=== PATIENT | female | born 1995 | race Asian ===

== ENCOUNTER 2022-02-11 23:46 | Observation (INO) ==
[2022-02-12] MEDS ORDERED: ACETAMINOPHEN 1,000 MG/100 ML VIAL IV STA (01:31)
[2022-02-12] MEDS ORDERED: CIPROFLOXACIN / D5W 400 MG/200 ML BAG IV STA (01:31)
[2022-02-12] MEDS ORDERED: metroNIDAZOLE 500 MG/100 ML BAG IV STA (01:31)
[2022-02-12 02:00] LABS: Basophils # (auto) 0.01 K/uL (0-0.2); Basophils % (auto) 0.1 %; Eosinophils # (auto) 0.12 K/uL (0-0.50); Eosinophils % (auto) 1.1 %; Hematocrit (blood only) 39.1 % (34.1-44.9); Hemoglobin 12.9 g/dl (12.0-16.0); Immature Granulocytes # (auto) 0.02 K/uL (0.00-0.02); Immature Granulocytes % (auto) 0.2 %; Lymphocytes # (auto) 1.98 K/uL (1.2-3.4); Lymphocytes % (auto) 17.4 %; Mean Platelet Volume 9.1 fL (9.4-12.3); Monocytes # (auto) 0.66 K/uL (0.24-0.82); Monocytes % (auto) 5.8 %; Neutrophils # (auto) 8.61 K/uL (1.4-6.5); Neutrophils % (auto) 75.4 %; Platelet Count 276 K/uL (130-400)
[2022-02-12 02:25] LABS: Albumin Globulin Ratio 1.2 (0.9-2); Albumin Level 4.4 gm/dl (3.4-5.0); BUN Creatinine Ratio 13.9 (10-20); Bilirubin,Total 0.7 mg/dl (0.2-1.0); Calcium 9.2 mg/dl (8.5-10.1); Creatinine Clr Calc Pharmacy 105.9 ml/min; Est GFR (African American) 134.9 ml/min; Est GFR (Non-African American) 116.4 ml/min; Globulin 3.6 gm/dl (2.5-4.0)
[2022-02-12] MEDS ORDERED: OPTIRAY 350 100ml IV ONE (03:00)
[2022-02-12 05:31] LABS: Appearance Urine Clear (Clear); Bacteria Urine Automated 1+ (Negative); Bilirubin Urine Negative (Negative); Blood Urine Negative (Negative); Color Urine Yellow; Epithelial Cell Urine Auto >30 /lpf (0-5); Glucose Urine UA Negative (Negative); Ketones Urine 2+ (Negative); Leukocyte Esterase Urine Negative (Negative); Nitrite Urine Negative (Negative); Protein Urine Trace (Negative); RBC Urine Automated 0-4 /hpf (0-4); Specific Gravity Urine > 1.045 (1.000-1.030); Urobilinogen Urine Negative (Negative); pH Urine 6.5 (4.5-7.5)
--- NOTE | 2022-02-12 05:59 | Emergency Department Note ---
History of Present Illness General Chief complaint: Pilonidal Cyst Stated complaint: INFECTED CYST IN RIGHT BUTT CHEEK Time Seen by Provider: 02/12/22 01:22 History of Present Illness Maximum Pain Intensity: 4 This 26-year-old presents to the ER complaining of buttock cellulitis Location: Buttock Quality: Painful Severity: Moderate Duration: Past few days Timing: Started few days ago Context: Patient was concerned and came in Modifying factors: better with rest; worse with palpation Patient denies chest pain, dyspnea, abdominal pain, fever, chills, flulike illness. No history of pilonidal abscesses. No diabetes Home Medications Medication Instructions Recorded Confirmed Type fluconazole 150 mg tablet 150 mg PO Q3D 2 doses #2 tabs 10/01/21 10/01/21 Rx venlafaxine [Effexor XR] PO 10/01/21 10/01/21 History Allergies Allergy/AdvReac Type Severity Reaction Status Date / Time Penicillins Allergy Verified 10/01/21 13:45 Past Med/Surg History Medical History No acute medical problems Surgical History No pertinent past surgical history Family History Denies family history of Ovarian cancer Prostate cancer Myocardial infarction Breast cancer Colorectal cancer Social History Smoking Status: Current every day smoker Tobacco Type: E-cigarettes / Vaping Second Hand Exposure: No; Hx Alcohol Use: Yes Hx Substance Use: No Preferred Language: Ukrainian marital status: Single Current Living Situation: Alone current occupational status: employed How many Children do You have: 0 Feels Safe at Home: Yes caffeine: Yes Dental Care, Regularly: Yes Physical Activity Frequency: 3-4 Times per Week Seatbelt Use: always Review of Systems A total of 10 systems reviewed and were otherwise negative Physical Exam Vital Signs Vital Signs - 24 hr 02/11/22 23:50 02/12/22 02:07 02/12/22 02:07 Temperature 36.6 C Temperature Source Temporal Artery Scan Pulse Rate 113 H Pulse Rate [Finger] 84 Pulse Rhythm [Finger] Pulse Strength [Finger] Respiratory Rate 20 18 Respiratory Effort / Characteristics Non-Labored Non-Labored Spontaneous Respiratory Depth Normal Normal Respiratory Pattern Regular Blood Pressure 114/63 Blood Pressure [Left Arm] 102/57 L Blood Pressure Mean 80 Blood Pressure Mean [Left Arm] 72 Blood Pressure Position [Left Arm] Semi-fowlers Pulse Oximetry 98 99 98 Oxygen Delivery Method Room Air Room Air Sepsis Recent Fever Within 48 Hours No Sepsis New/Unexplained Change in Mental Status N/A Sepsis Action Taken by Nursing No Action Required 02/12/22 03:37 02/12/22 05:39 Temperature Temperature Source Pulse Rate Pulse Rate [Finger] 77 73 Pulse Rhythm [Finger] Regular Regular Pulse Strength [Finger] Normal Normal Respiratory Rate 16 17 Respiratory Effort / Characteristics Non-Labored Spontaneous Non-Labored Spontaneous Respiratory Depth Normal Normal Respiratory Pattern Regular Regular Blood Pressure Blood Pressure [Left Arm] 106/65 119/59 L Blood Pressure Mean Blood Pressure Mean [Left Arm] 78 79 Blood Pressure Position [Left Arm] Sitting Sitting Pulse Oximetry 98 97 Oxygen Delivery Method Room Air Room Air Sepsis Recent Fever Within 48 Hours Sepsis New/Unexplained Change in Mental Status Sepsis Action Taken by Nursing VITALS: Vitals are noted on the nurse's note and reviewed by myself. Vital signs stable. GENERAL: Pleasant patient, in no acute distress, nondiaphoretic, well-developed well-nourished. SKIN: Right buttock with cellulitis with small pustule, the rest of the skin was without rashes, erythema, edema, or bruising. There is no tenting of the skin. Capillary reflex less than 2 seconds. HEAD: Normocephalic atraumatic. EARS: External auditory canals clear, EYES: Pupils equal round and reactive to light and accommodation. Conjunctivae without injection, sclerae without icterus. Extraocular movements intact. NOSE: Patent, turbinates without inflammation or discharge. MOUTH: Mucous membranes moist. Pharynx without erythema or exudate. Uvula midline. Airway patent. Tongue does not deviate. NECK: Supple without nuchal rigidity. No lymphadenopathy. No thyromegaly. Cervical spine is nontender. No JVD. HEART: Regular rate and rhythm LUNGS: Clear to auscultation bilaterally without wheezes, rales or rhonchi. No retractions or accessory muscle use. ABDOMEN: Positive bowel sounds x 4. Normal tympanic percussion. Soft, nontender, without masses or organomegaly. [place] sign negative. No guarding or rebound tenderness. No CVA tenderness MUSCULOSKELETAL: No muscle atrophy, erythema, or edema noted. NEURO: Patient was alert and oriented to person place and time. Normal sensation to light and sharp touch. No focal neurological deficits. Course Administered Medications Discontinued Medications Acetaminophen (Ofirmev) 1,000 mg in 100 mls @ 400 mls/hr IV NOW STA Stop: 02/12/22 01:45 Last Infusion: 02/12/22 01:59 Dose: 0 mls/hr Documented By: Admin: 02/12/22 01:44 Dose: 400 mls/hr Documented By: JAME Ciprofloxacin (Cipro / D5w) 400 mg in 200 mls @ 100 mls/hr IV NOW STA; Protocol Stop: 02/12/22 03:30 Last Infusion: 02/12/22 04:31 Dose: 0 mls/hr Documented By: Admin: 02/12/22 01:44 Dose: 100 mls/hr Documented By: JAME Metronidazole (Flagyl) 500 mg in 100 mls @ 100 mls/hr IV NOW STA Stop: 02/12/22 02:30 Last Infusion: 02/12/22 04:40 Dose: 0 mls/hr Documented By: Admin: 02/12/22 03:33 Dose: 100 mls/hr Documented By: KAPIL Ioversol (Optiray 350 100ml) 85 ml IV ONCE ONE Stop: 02/12/22 03:01 Last Admin: 02/12/22 02:56 Dose: 85 ml Documented By: MARTIN Medical Decision Making Medical Records Attestation: I reviewed the patient's medical records. Home Medications Current Medication List: was personally reviewed by me Laboratory Data Attestation: I reviewed the patient's lab results. Result diagrams: 02/12/22 01:45 02/12/22 01:45 Lab Results 02/12/22 02/12/22 02/12/22 Range/Units 01:45 01:45 04:50 WBC 11.40 H (4.8-10.8) K/ul RBC 4.60 (3.93-5.22) M/uL Hgb 12.9 (12.0-16.0) g/dl Hct 39.1 (34.1-44.9) % MCV 85.0 (80.0-100.0) fL MCH 28.0 (25.0-34.0) pg MCHC 33.0 (32.0-36.0) g/dL RDW Std Deviation 37.0 (36.4-46.3) fL RDW Coeff of [place] 12.0 (11.5-14.5) % Plt Count 276 (130-400) K/uL MPV 9.1 L (9.4-12.3) fL Immature Gran % (Auto) 0.2 % Neut % (Auto) 75.4 % Lymph % (Auto) 17.4 % [place] % (Auto) 5.8 % Eos % (Auto) 1.1 % Baso % (Auto) 0.1 % Neut # (Auto) 8.61 H (1.4-6.5) K/uL Lymph # (Auto) 1.98 (1.2-3.4) K/uL [place] # (Auto) 0.66 (0.24-0.82) K/uL Eos # (Auto) 0.12 (0-0.50) K/uL Baso # (Auto) 0.01 (0-0.2) K/uL Immature Gran # (Auto) 0.02 (0.00-0.02) K/uL Sodium 136 (136-145) mmol/L Potassium 3.0 L (3.5-5.1) mmol/L Chloride 99 (98-107) mmol/L Carbon Dioxide 28 (21-32) mmol/L Anion Gap 9 (3-11) BUN 10 (6-23) mg/dl Creatinine 0.72 (0.6-1.2) mg/dl Est Cr Clr Drug Dosing 105.9 ml/min Est GFR ( Amer) 134.9 ml/min Est GFR (Non-Af Amer) 116.4 ml/min BUN/Creatinine Ratio 13.9 (10-20) Glucose 76 (70-99(Fasting)) mg/dl Calcium 9.2 (8.5-10.1) mg/dl Total Bilirubin 0.7 (0.2-1.0) mg/dl AST 15 (13-39) U/L ALT 8 (7-52) U/L Alkaline Phosphatase 79 (34-104) U/L Total Protein 8.0 (6.0-8.3) gm/dl Albumin 4.4 (3.4-5.0) gm/dl Globulin 3.6 (2.5-4.0) gm/dl Albumin/Globulin Ratio 1.2 (0.9-2) Urine Color Yellow Urine Appearance Clear (Clear) Urine pH 6.5 (4.5-7.5) Ur Specific [place] > 1.045 H (1.000-1.030) Urine Protein Trace H (Negative) Urine Glucose (UA) Negative (Negative) Urine Ketones 2+ H (Negative) Urine Blood Negative (Negative) Urine Nitrite Negative (Negative) Urine Bilirubin Negative (Negative) Urine Urobilinogen Negative (Negative) Ur Leukocyte Esterase Negative (Negative) Imaging Data Attestation: I personally reviewed and interpreted this imaging study as follows: MDM Narrative Prior records reviewed and summarized as above. Triage Nursing notes reviewed. Additional history obtained from family. The patient's history was concerning for swelling and redness of the skin. Differential diagnosis: Etiologies such as cellulitis, abscess, MRSA infection, DVT, necrotizing fasciitis, dermatitis, drug eruption, as well as others were entertained.. Physical examination: As above ER treatment provided: Rocephin, Flagyl On reassessment the patient felt better. Diagnostics interpreted by me: The labs revealed mild leukocytosis Imaging studies: Preliminary Findings Only See Final Report For Complete Findings CT PELVIS: Right gluteal skin thickening, fat stranding, and phlegmonous reaction within the subcutaneous fat suspicious for cellulitis. No rim-enhancing fluid colle ction. Normal appendix. No free air. No free fluid. No pelvic or femoral neck fractures. Radiologist: Parker Olivier MD Consultation: A consultation was placed with the] hospitalist. The case was discussed and diagnostics were reviewed. The patient was evaluated in the ER for further treatment. This appears to be extensive buttock cellulitis. Medicine is consulted. Patient will be evaluated for possible admission. No drainable abscess per radiology. By the evaluation outlined above emergent etiologies such as abscess, necrotizing fasciitis, DVT, as well as others were deemed relatively unlikely. The pt informed about the findings as listed above. All questions were answered and pleased with the treatment. The chart was completed utilizing [employer] recognition software. Grammatical errors, random word insertions, pronoun errors, and incomplete sentences are an occassional consequence of this system due to software limitati ons, ambient noise, and hardware issues. Any formal questions or concerns about the content, text, or information contained within the body of this dictation should be directly addressed to the physician special education assistant for clarification. Impression & Plan Cellulitis of buttock, right Discharge Plan Visit Data Chief Complaint: Pilonidal Cyst Stated Complaint: INFECTED CYST IN RIGHT BUTT CHEEK ED Provider: [facility] Midlevel Provider: Sheila Gusman Discharge Problem: Cellulitis of buttock, right Patient Disposition: Admitted As Inpatient Condition: Good Forms Stand Alone Forms: My [facility] Prescriptions Prescriptions: No Action venlafaxine [Effexor XR] PO fluconazole 150 mg tablet 150 mg PO Q3D Qty: 2 0RF Referrals Referrals: PCP,NO [Primary Care Provider] -
--- NOTE | 2022-02-12 06:29 | History & Physical Report ---
Date of Service February 12, 2022 Assessment & Plan (1) Cellulitis of buttock, right: Plan: No sepsis for now Hypokalemia Mood disorder, stable Ongoing tobacco abuse OBS GMF buttock swelling CS, Doxycycline Follow official CT pelvis results May need General Surgery evaluation if abscess found. Replace potassium, check magnesium from lab blood Nicotine patch as needed DVT prophylaxis. Lovenox subcu Full code Text document was generated using [employer] voice recognition software. It may contain grammatical or spelling errors. Kindly contact undersigned for clarification of any documentation item in question. History of Present Illness Chief Complaint: Right buttock swelling Primary Care Provider: Lolita Baum PA-C from [place], [place] History obtained from patient and records. Medical history significant for mood disorder, ongoing tobacco abuse. Few days history of painful right buttock swelling without fever, chills. Some yellow drainage as per patient. No recollection of recent trauma. No prior episodes. Patient denies chest pain, shortness of breath. Ceftriaxone and Flagyl administered at the ER. 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 Allergies Allergy/AdvReac Type Severity Reaction Status Date / Time sulfamethoxazole Allergy Mild Hives Verified 02/12/22 10:49 [From Bactrim] trimethoprim [From Bactrim] Allergy Mild Hives Verified 02/12/22 10:49 Penicillins Allergy Hives Verified 02/12/22 10:49 Home Medications Medication Instructions Recorded Confirmed Type venlafaxine [Effexor XR] 75 mg PO DAILY 10/01/21 02/12/22 History Past Med/Surg History Medical History No acute medical problems Surgical History No pertinent past surgical history Family History Denies family history of Ovarian cancer Prostate cancer Myocardial infarction Breast cancer Colorectal cancer Social History Smoking Status: Current every day smoker Tobacco Type: E-cigarettes / Vaping Second Hand Exposure: No; Hx Alcohol Use: Yes Hx Substance Use: No Preferred Language: Czech marital status: Single Current Living Situation: Alone current occupational status: employed How many Children do You have: 0 Feels Safe at Home: Yes caffeine: Yes Dental Care, Regularly: Yes Physical Activity Frequency: 3-4 Times per Week Seatbelt Use: always Review of Systems Review of Systems: As per HPI, all other systems reviewed and negative Physical Exam Physical Exam: GENERAL: Comfortable, pleasant, no respiratory distress SKIN: Normal color, warm HEENT: [place] palpebral conjunctivae, no ptosis, dry buccal mucosa NECK : Supple, no tenderness CHEST : CTA, no tenderness HEART : RRR, no obvious murmurs ABDOMEN: no distention, nontender BUTTOCK : Tender erythematous swelling right buttock, no gross fluctuance EXTREMITIES : No LE swelling/tenderness, no other conspicuous deformities noted NEUROLOGIC : Coherent, no facial asymmetry, no other gross focality Results & Data Results & Data ([facility]) Vital Signs (Past 12 Hours) Vital Signs Temp Pulse Pulse Resp BP BP Pulse Ox 02/12/22 05:39 73 17 119/59 L 97 02/12/22 03:37 77 16 106/65 98 02/12/22 02:07 84 18 102/57 L 98 02/12/22 02:07 99 02/11/22 23:50 36.6 C 113 H 20 114/63 98 O2 Del Method 02/12/22 05:39 Room Air 02/12/22 03:37 Room Air 02/12/22 02:07 Room Air 02/12/22 02:07 02/11/22 23:50 Room Air Laboratory Results Laboratory Results WBC 11.40 K/ul (4.8-10.8) H 02/12/22 01:45 RBC 4.60 M/uL (3.93-5.22) 02/12/22 01:45 Hgb 12.9 g/dl (12.0-16.0) 02/12/22 01:45 Hct 39.1 % (34.1-44.9) 02/12/22 01:45 MCV 85.0 fL (80.0-100.0) 02/12/22 01:45 MCH 28.0 pg (25.0-34.0) 02/12/22 01:45 MCHC 33.0 g/dL (32.0-36.0) 02/12/22 01:45 RDW Std Deviation 37.0 fL (36.4-46.3) 02/12/22 01:45 RDW Coeff of [place] 12.0 % (11.5-14.5) 02/12/22 01:45 Plt Count 276 K/uL (130-400) 02/12/22 01:45 MPV 9.1 fL (9.4-12.3) L 02/12/22 01:45 Immature Gran % (Auto) 0.2 % 02/12/22 01:45 Neut % (Auto) 75.4 % 02/12/22 01:45 Lymph % (Auto) 17.4 % 02/12/22 01:45 [place] % (Auto) 5.8 % 02/12/22 01:45 Eos % (Auto) 1.1 % 02/12/22 01:45 Baso % (Auto) 0.1 % 02/12/22 01:45 Neut # (Auto) 8.61 K/uL (1.4-6.5) H 02/12/22 01:45 Lymph # (Auto) 1.98 K/uL (1.2-3.4) 02/12/22 01:45 [place] # (Auto) 0.66 K/uL (0.24-0.82) 02/12/22 01:45 Eos # (Auto) 0.12 K/uL (0-0.50) 02/12/22 01:45 Baso # (Auto) 0.01 K/uL (0-0.2) 02/12/22 01:45 Immature Gran # (Auto) 0.02 K/uL (0.00-0.02) 02/12/22 01:45 Sodium 136 mmol/L (136-145) 02/12/22 01:45 Potassium 3.0 mmol/L (3.5-5.1) L 02/12/22 01:45 Chloride 99 mmol/L (98-107) 02/12/22 01:45 Carbon Dioxide 28 mmol/L (21-32) 02/12/22 01:45 Anion Gap 9 (3-11) 02/12/22 01:45 BUN 10 mg/dl (6-23) 02/12/22 01:45 Creatinine 0.72 mg/dl (0.6-1.2) 02/12/22 01:45 Est Cr Clr Drug Dosing 105.9 ml/min 02/12/22 01:45 Est GFR ( Amer) 134.9 ml/min 02/12/22 01:45 Est GFR (Non-Af Amer) 116.4 ml/min 02/12/22 01:45 BUN/Creatinine Ratio 13.9 (10-20) 02/12/22 01:45 Glucose 76 mg/dl (70-99(Fasting)) 02/12/22 01:45 Calcium 9.2 mg/dl (8.5-10.1) 02/12/22 01:45 Total Bilirubin 0.7 mg/dl (0.2-1.0) 02/12/22 01:45 AST 15 U/L (13-39) 02/12/22 01:45 ALT 8 U/L (7-52) 02/12/22 01:45 Alkaline Phosphatase 79 U/L (34-104) 02/12/22 01:45 Total Protein 8.0 gm/dl (6.0-8.3) 02/12/22 01:45 Albumin 4.4 gm/dl (3.4-5.0) 02/12/22 01:45 Globulin 3.6 gm/dl (2.5-4.0) 02/12/22 01:45 Albumin/Globulin Ratio 1.2 (0.9-2) 02/12/22 01:45 Urine Color Yellow 02/12/22 04:50 Urine Appearance Clear (Clear) 02/12/22 04:50 Urine pH 6.5 (4.5-7.5) 02/12/22 04:50 Ur Specific [place] > 1.045 (1.000-1.030) H 02/12/22 04:50 Urine Protein Trace (Negative) H 02/12/22 04:50 Urine Glucose (UA) Negative (Negative) 02/12/22 04:50 Urine Ketones 2+ (Negative) H 02/12/22 04:50 Urine Blood Negative (Negative) 02/12/22 04:50 Urine Nitrite Negative (Negative) 02/12/22 04:50 Urine Bilirubin Negative (Negative) 02/12/22 04:50 Urine Urobilinogen Negative (Negative) 02/12/22 04:50 Ur Leukocyte Esterase Negative (Negative) 02/12/22 04:[address] pelvis initial read: Right gluteal skin thickening, fat stranding, and phlegmonous reaction within the subcutaneous fat suspicious for cellulitis. No rim-enhancing fluid collection. Normal appendix. No free air. No free fluid. No pelvic or femoral neck fractures
[2022-02-12] MEDS ORDERED: DOXYCYCLINE HYCLATE 100 MG in DEXTROSE 5% 100 ML IV STA (06:31)
[2022-02-12] MEDS ORDERED: PROMETHAZINE HCL 12.5 MG in SODIUM CHLORIDE 0.9% 50 ML IV PRN (06:51)
[2022-02-12] MEDS ORDERED: POTASSIUM CHLORIDE 10 MEQ TABCR PO STA (06:51)
[2022-02-12] MEDS ORDERED: KETOROLAC TROMETHAMINE 15 MG/ML VIAL IV PRN (06:51)
[2022-02-12] MEDS ORDERED: LORazepam 0.5 MG TAB PO PRN (06:51)
[2022-02-12] MEDS ORDERED: ACETAMINOPHEN 325 MG TAB PO PRN ×2 (06:51→09:11)
[2022-02-12] MEDS ORDERED: LACTATED RINGER'S 1,000 ML IV ONE (06:51)
[2022-02-12] MEDS ORDERED: IBUPROFEN 200 MG TAB PO PRN (06:52)
[2022-02-12 07:17] LABS: Cast Urine Automated 0 /lpf (0-5)
[2022-02-12] MEDS: ENOXAPARIN INJ 40 MG/0.4 ML SYR SQ SCH (10:01)
[2022-02-12] MEDS: VENLAFAXINE HCL XR 75 MG CAPXR PO SCH (10:01)
[2022-02-12] MEDS ORDERED: LIDOCAINE 2% LOCAL 20 ML VIAL INFIL ONE (11:25)
--- NOTE | 2022-02-12 12:03 | Hospitalist Progress Note ---
Date of Service February 12, 2022 Assessment & Plan (1) Cellulitis of buttock, right: Plan: Right Buttock Cellulitis/Abscess CT pelvis pending Continue IV Rocephin, doxycycline Continue wound care Surgery consulted for input Continue IV fluids Abnormal urinalysis Urine culture pending Continue Rocephin as above Hypokalemia Normal magnesium levels Replete electrolytes as needed Mood disorder Ongoing tobacco abuse Continue venlafaxine Counseled to quit smoking DVT Px: Lovenox SQ CODE STATUS Full code Admission and Anticipated Discharge Date Admission Date: February 12, 2022 Subjective Patient is seen and examined at bedside Right buttock pain better today Denies any chest pain, shortness breath, dizziness, nausea, abdominal pain Offers no other complaints Review of Systems Review of Systems: All systems reviewed & are unremarkable except as noted in Subjective Physical Exam Physical Exam: Physical Exam: Vitals signs as noted above General Appearance:Moderately built and nourished, no apparent distress Head: normocephalic, Atraumatic Eyes: normal inspection, EOMI Neck: supple, Trachea midline Respiratory/Chest: Normal breath sounds, CTA, No accessory muscle use Cardiovascular: S1, S2, No murmur Abdomen/GI:Soft, Non tender, Bowel sounds present Right Buttock abscess with surrounding erythema, tenderness Extremities/Musculoskeletal:normal inspection, no edema Neurologic/Psych:AAOX3, grossly no focal neurological deficits Skin: normal color, warm Results & Data Results & Data ([facility]) Vital Signs (Past 12 Hours) Vital Signs Pulse Resp BP Pulse Ox O2 Del Method 02/12/22 08:33 79 19 109/66 98 Room Air 02/12/22 05:39 73 17 119/59 L 97 Room Air 02/12/22 03:37 77 16 106/65 98 Room Air 02/12/22 02:07 84 18 102/57 L 98 Room Air 02/12/22 02:07 99 Laboratory Results Short CBC 02/12/22 Range/Units 01:45 WBC 11.40 H (4.8-10.8) K/ul Hgb 12.9 (12.0-16.0) g/dl Hct 39.1 (34.1-44.9) % Plt Count 276 (130-400) K/uL BMP 02/12/22 01:45 Sodium 136 Potassium 3.0 L Chloride 99 Carbon Dioxide 28 BUN 10 Creatinine 0.72 Glucose 76 Calcium 9.2 Liver Function 02/12/22 Range/Units 01:45 Total Bilirubin 0.7 (0.2-1.0) mg/dl AST 15 (13-39) U/L ALT 8 (7-52) U/L Alkaline Phosphatase 79 (34-104) U/L Albumin 4.4 (3.4-5.0) gm/dl Urine 02/12/22 Range/Units 04:50 Urine Color Yellow Urine Appearance Clear (Clear) Urine pH 6.5 (4.5-7.5) Ur Specific [place] > 1.045 H (1.000-1.030) Urine Protein Trace H (Negative) Urine Glucose (UA) Negative (Negative)
--- NOTE | 2022-02-12 12:03 | Surgery Consultation ---
Date of Consultation February 12, 2022 Assessment & Plan (1) Abscess, gluteal, right: Small eschar on the right buttock was anesthetized with local anesthesia It was then opened with recovery of purulent material which was sent for culture Gently packed with small amount of gauze Continue dressing changes and antibiotics May need 1-2 more days in the hospital and then oral antibiotics with office follow-up May consider using Aquacel tomorrow History of Present Illness Attending Physician: Marcelino Lewis MD History of Present Illness 26-year-old female who presented to the emergency room with increasing right gluteal pain and redness She was admitted with what appears to be cellulitis of the right buttock A CT scan did not show significant fluid collection She does feel somewhat better since being admitted with less pain Allergies Allergy/AdvReac Type Severity Reaction Status Date / Time sulfamethoxazole Allergy Mild Hives Verified 02/12/22 10:49 [From Bactrim] trimethoprim [From Bactrim] Allergy Mild Hives Verified 02/12/22 10:49 Penicillins Allergy Hives Verified 02/12/22 10:49 Home Medications Medication Instructions Recorded Confirmed Type venlafaxine [Effexor XR] 75 mg PO DAILY 10/01/21 02/12/22 History Patient History Medical History No acute medical problems Surgical History No pertinent past surgical history Family History Denies family history of Ovarian cancer Prostate cancer Myocardial infarction Breast cancer Colorectal cancer Social History Smoking Status: Current every day smoker Tobacco Type: E-cigarettes / Vaping Second Hand Exposure: No; Hx Alcohol Use: Yes Hx Substance Use: No Preferred Language: Uzbek marital status: Single Current Living Situation: Alone current occupational status: employed How many Children do You have: 0 Feels Safe at Home: Yes caffeine: Yes Dental Care, Regularly: Yes Physical Activity Frequency: 3-4 Times per Week Seatbelt Use: always Review of Systems Review of Systems: All systems reviewed & are unremarkable except as noted in HPI & below Physical Exam Physical Exam: Her right buttock area does show large area of cellulitis and a central necrotic eschar with purulent fluid oozing See operative report The site was opened under local anesthesia with recovery of necrotic tissue sent for culture Constitutional: well developed; no acute distress Eyes: + anicteric sclerae Respiratory: normal respiratory effort; no respiratory distress Cardiovascular: Rate/Rhythm: regular rate Gastrointestinal (Abdomen): Inspection/Auscultation: abdomen not distended Musculoskeletal: Head/Neck/Chest: head atraumatic Skin: no rashes, warm and dry Neurologic: awake Psychiatric: Orientation: alert Results & Data ([facility]) Vital Signs (Past 12 Hours) Vital Signs Pulse Resp BP Pulse Ox O2 Del Method 02/12/22 08:33 79 19 109/66 98 Room Air 02/12/22 05:39 73 17 119/59 L 97 Room Air 02/12/22 03:37 77 16 106/65 98 Room Air 02/12/22 02:07 84 18 102/57 L 98 Room Air 02/12/22 02:07 99 PG Care Time/CCT Total # of Minutes Spent Total Time Spent with Patient: Total time spent is greater than 50% in coordination of care (as documented) at patient's floor/unit and/or counseling patient: Coding Level of Care Code 04642 Inpt Consult Level 3 Diagnoses Abscess, gluteal, right L02.31
[2022-02-12] MEDS: cefTRIAXone SODIUM 1,000 MG in DEXTROSE 5% 50 ML IV SCH (12:31)
--- NOTE | 2022-02-12 12:36 | Operative Report (OR) ---
DATE OF OPERATION: 02/12/2022. NAME OF OPERATION: Incision and drainage of right gluteal abscess. DESCRIPTION OF PROCEDURE: The patient was in her hospital bed. She was on her right side. The nurs e helped me the tissue. She had a small 1.5-2 cm eschar with surrounding erythema with purulen t fluid coming from the area. Site was anesthetized using 1% plain lidocaine and then using an 15 bl tasha scalpel, excised the eschar and deep tissue, sending it for routine pathology, encountering a sma ll cavity, which was gently packed with gauze. Then, a dressing applied. The patient tolerated the procedure well. Job ID: [id number]
[2022-02-12 15:11] LABS: Pregnancy Test, Urine Negative (Negative)
[2022-02-12] MEDS ORDERED: POTASSIUM CHLORIDE CRTAB 20 MEQ TABCR PO ONE (16:00)
--- NOTE | 2022-02-12 16:04 | CT Scan Report ---
CT pelvis w/IV con only CLINICAL HISTORY: right buttock infx, ? extent TECHNIQUE: Helical axial images of the pelvis were obtained and displayed at 5 and 1 mm intervals. Au tomated dose lowering techniques and/or adjustment according to patient size were utilized for this e xam. This exam was performed with intravenous contrast. CT DOSE: 278.83 mGy.cm COMPARISON: None available at the time of this dictation. FINDINGS: Bladder: Unremarkable. Reproductive organs: Unremarkable. Bowel: Unremarkable appearance of the bowel. The appendix is normal. Lymph nodes Pelvic: Unremarkable. Mesenteric: Unremarkable. Peritoneum: Normal Vessels: Unremarkable. Abdominal wall: There is skin thickening in the right gluteal region with associated fat stranding wi thout evidence of drainable fluid collection. Bones: Unremarkable. IMPRESSION: Partial visualization of right gluteal skin thickening and fat stranding without evidence of drainabl e fluid collection. ACT 112: Negative or not required by law. Electronically signed by: Alexis Rodriguez M.D. 02/12/2022 4:02 PM
[2022-02-12] MEDS: DOXYCYCLINE HYCLATE 100 MG CAP PO SCH (20:18)
[2022-02-12] MEDS ORDERED: CETIRIZINE HCL 10 MG TABLET PO SCH (22:55)
[2022-02-13 07:47] LABS: Basophils # (auto) 0.01 K/uL (0-0.2); Basophils % (auto) 0.2 %; Eosinophils % (auto) 4.9 %; Hematocrit (blood only) 37.4 % (34.1-44.9); Immature Granulocytes # (auto) 0.01 K/uL (0.00-0.02); Immature Granulocytes % (auto) 0.2 %; Lymphocytes # (auto) 1.31 K/uL (1.2-3.4); Lymphocytes % (auto) 21.4 %; Mean Corpuscular Hemoglobin 27.4 pg (25.0-34.0); Mean Corpuscular Hgb Conc 32.1 g/dL (32.0-36.0); Mean Corpuscular Volume 85.4 fL (80.0-100.0); Mean Platelet Volume 9.1 fL (9.4-12.3); Monocytes # (auto) 0.37 K/uL (0.24-0.82); Neutrophils # (auto) 4.12 K/uL (1.4-6.5); Neutrophils % (auto) 67.3 %; Platelet Count 252 K/uL (130-400); RDW Standard Deviation 37.2 fL (36.4-46.3); Red Blood Count 4.38 M/uL (3.93-5.22); White Blood Count 6.12 K/ul (4.8-10.8)
[2022-02-13] MEDS: ENOXAPARIN INJ 40 MG/0.4 ML SYR SQ SCH (08:05)
[2022-02-13] MEDS: VENLAFAXINE HCL XR 75 MG CAPXR PO SCH (08:05)
[2022-02-13] MEDS: DOXYCYCLINE HYCLATE 100 MG CAP PO SCH (08:05)
[2022-02-13 08:07] LABS: BUN Creatinine Ratio 10.4 (10-20); Calcium 8.9 mg/dl (8.5-10.1); Creatinine Clr Calc Pharmacy 116.6 ml/min; Est GFR (African American) 141.6 ml/min; Est GFR (Non-African American) 122.2 ml/min; Potassium 3.8 mmol/L (3.5-5.1)
--- NOTE | 2022-02-13 08:49 | Surgery Progress Note ---
Date of Service February 13, 2022 Assessment & Plan (1) History of incision and drainage: Plan: Status post incision drainage and debridement of right buttock abscess Initial culture showing gram-positive's-no ID or sensitivities Now using Aquacel Ag which she can use at home daily for dressing change Would like to discharge patient as soon as possible on oral antibiotics We will leave antibiotic choice to the medical team Would be okay to discharge today from surgical standpoint and can check her later this week in the office with my nurses Admission and Anticipated Discharge Date Admission Date: February 12, 2022 Results & Data ([facility]) Vital Signs (Past 12 Hours) Vital Signs Temp Pulse Resp BP Pulse Ox O2 Del Method 02/13/22 08:11 37 C 88 16 109/71 97 Room Air 02/12/22 22:10 36.5 C 87 16 118/60 99 Room Air PG Care Time/CCT Total # of Minutes Spent Total Time Spent with Patient: Total time spent is greater than 50% in coordination of care (as documented) at patient's floor/unit and/or counseling patient: Coding Level of Care Code None Diagnoses History of incision and drainage Z98.890
[2022-02-13] MEDS: cefTRIAXone SODIUM 1,000 MG in DEXTROSE 5% 50 ML IV SCH (11:31)
--- NOTE | 2022-02-13 13:21 | Hospitalist Progress Note ---
Date of Service February 13, 2022 Assessment & Plan (1) Cellulitis of buttock, right: Plan: Right Buttock Cellulitis/Abscess CT pelvis: Partial visualization of right gluteal skin thickening and fat stranding without evidence of drainable fluid collection. S/P incision and drainage Wound culture growing staph species Continue IV Rocephin, doxycycline Continue wound care Appreciate Surgery help Received IV fluids Transition to p.o. antibiotics to complete the course Advised to follow-up with PCP, surgery upon discharge Abnormal urinalysis Urine culture pending Continue Rocephin as above Hypokalemia Normal magnesium levels Replete electrolytes as needed Mood disorder Ongoing tobacco abuse Continue venlafaxine Counseled to quit smoking DVT Px: Lovenox SQ CODE STATUS Full code Admission and Anticipated Discharge Date Admission Date: February 13, 2022 Subjective Patient is seen and examined at bedside States feeling better today Right buttock pain minimal with activity Had dressing change today Denies any chest pain, shortness breath, dizziness, nausea, abdominal pain Prefers to get discharged today Review of Systems Review of Systems: All systems reviewed & are unremarkable except as noted in Subjective Physical Exam Physical Exam: Physical Exam: Vitals signs as noted above General Appearance:Moderately built and nourished, no apparent distress Head: normocephalic, Atraumatic Eyes: normal inspection, EOMI Neck: supple, Trachea midline Respiratory/Chest: Normal breath sounds, CTA, No accessory muscle use Cardiovascular: S1, S2, No murmur Abdomen/GI:Soft, Non tender, Bowel sounds present Right Buttock abscess with surrounding erythema, tenderness Extremities/Musculoskeletal:normal inspection, no edema Neurologic/Psych:AAOX3, grossly no focal neurological deficits Skin: normal color, warm Results & Data Results & Data ([facility]) Vital Signs (Past 12 Hours) Vital Signs Temp Pulse Resp BP Pulse Ox O2 Del Method 02/13/22 08:11 37 C 88 16 109/71 97 Room Air Laboratory Results Short CBC 02/13/22 Range/Units 07:18 WBC 6.12 (4.8-10.8) K/ul Hgb 12.0 (12.0-16.0) g/dl Hct 37.4 (34.1-44.9) % Plt Count 252 (130-400) K/uL BMP 02/13/22 07:18 Sodium 138 Potassium 3.8 D Chloride 104 Carbon Dioxide 29 BUN 7 Creatinine 0.67 Glucose 78 Calcium 8.9
--- NOTE | 2022-02-13 13:28 | Discharge Summary ---
Date of Service February 13, 2022 Admission HPI Per Admitting Provider History obtained from patient and records. Medical history significant for mood disorder, ongoing tobacco abuse. Few days history of painful right buttock swelling without fever, chills. Some yellow drainage as per patient. No recollection of recent trauma. No prior episodes. Patient denies chest pain, shortness of breath. Ceftriaxone and Flagyl administered at the ER. 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 Admission Exam Per Admitting Provider GENERAL: Comfortable, pleasant, no respiratory distress SKIN: Normal color, warm HEENT: [place] palpebral conjunctivae, no ptosis, dry buccal mucosa NECK : Supple, no tenderness CHEST : CTA, no tenderness HEART : RRR, no obvious murmurs ABDOMEN: no distention, nontender BUTTOCK : Tender erythematous swelling right buttock, no gross fluctuance EXTREMITIES : No LE swelling/tenderness, no other conspicuous deformities noted NEUROLOGIC : Coherent, no facial asymmetry, no other gross focality Principal Diagnosis Right buttock abscess/cellulitis Discharge Data Allergies Allergy/AdvReac Type Severity Reaction Status Date / Time sulfamethoxazole Allergy Mild Hives Verified 02/12/22 10:49 [From Bactrim] trimethoprim [From Bactrim] Allergy Mild Hives Verified 02/12/22 10:49 Penicillins Allergy Hives Verified 02/12/22 10:49 Consultations 02/12/22 05:54 ED Decision to Admit Stat 02/12/22 10:40 Consult General Surgery Routine Procedures Performed Laboratory Results WBC 6.12 K/ul (4.8-10.8) 02/13/22 07:18 RBC 4.38 M/uL (3.93-5.22) 02/13/22 07:18 Hgb 12.0 g/dl (12.0-16.0) 02/13/22 07:18 Hct 37.4 % (34.1-44.9) 02/13/22 07:18 MCV 85.4 fL (80.0-100.0) 02/13/22 07:18 MCH 27.4 pg (25.0-34.0) 02/13/22 07:18 MCHC 32.1 g/dL (32.0-36.0) 02/13/22 07:18 RDW Std Deviation 37.2 fL (36.4-46.3) 02/13/22 07:18 RDW Coeff of [place] 12.0 % (11.5-14.5) 02/13/22 07:18 Plt Count 252 K/uL (130-400) 02/13/22 07:18 MPV 9.1 fL (9.4-12.3) L 02/13/22 07:18 Immature Gran % (Auto) 0.2 % 02/13/22 07:18 Neut % (Auto) 67.3 % 02/13/22 07:18 Lymph % (Auto) 21.4 % 02/13/22 07:18 [place] % (Auto) 6.0 % 02/13/22 07:18 Eos % (Auto) 4.9 % 02/13/22 07:18 Baso % (Auto) 0.2 % 02/13/22 07:18 Neut # (Auto) 4.12 K/uL (1.4-6.5) 02/13/22 07:18 Lymph # (Auto) 1.31 K/uL (1.2-3.4) 02/13/22 07:18 [place] # (Auto) 0.37 K/uL (0.24-0.82) 02/13/22 07:18 Eos # (Auto) 0.30 K/uL (0-0.50) 02/13/22 07:18 Baso # (Auto) 0.01 K/uL (0-0.2) 02/13/22 07:18 Immature Gran # (Auto) 0.01 K/uL (0.00-0.02) 02/13/22 07:18 Sodium 138 mmol/L (136-145) 02/13/22 07:18 Potassium 3.8 mmol/L (3.5-5.1) D 02/13/22 07:18 Chloride 104 mmol/L (98-107) 02/13/22 07:18 Carbon Dioxide 29 mmol/L (21-32) 02/13/22 07:18 Anion Gap 5 (3-11) 02/13/22 07:18 BUN 7 mg/dl (6-23) 02/13/22 07:18 Creatinine 0.67 mg/dl (0.6-1.2) 02/13/22 07:18 Est Cr Clr Drug Dosing 116.6 ml/min 02/13/22 07:18 Est GFR ( Amer) 141.6 ml/min 02/13/22 07:18 Est GFR (Non-Af Amer) 122.2 ml/min 02/13/22 07:18 BUN/Creatinine Ratio 10.4 (10-20) 02/13/22 07:18 Glucose 78 mg/dl (70-99(Fasting)) 02/13/22 07:18 Calcium 8.9 mg/dl (8.5-10.1) 02/13/22 07:18 Magnesium 2.1 mg/dl (1.7-2.4) 02/12/22 01:45 Total Bilirubin 0.7 mg/dl (0.2-1.0) 02/12/22 01:45 AST 15 U/L (13-39) 02/12/22 01:45 ALT 8 U/L (7-52) 02/12/22 01:45 Alkaline Phosphatase 79 U/L (34-104) 02/12/22 01:45 Total Protein 8.0 gm/dl (6.0-8.3) 02/12/22 01:45 Albumin 4.4 gm/dl (3.4-5.0) 02/12/22 01:45 Globulin 3.6 gm/dl (2.5-4.0) 02/12/22 01:45 Albumin/Globulin Ratio 1.2 (0.9-2) 02/12/22 01:45 Urine Color Yellow 02/12/22 04:50 Urine Appearance Clear (Clear) 02/12/22 04:50 Urine pH 6.5 (4.5-7.5) 02/12/22 04:50 Ur Specific [place] > 1.045 (1.000-1.030) H 02/12/22 04:50 Urine Protein Trace (Negative) H 02/12/22 04:50 Urine Glucose (UA) Negative (Negative) 02/12/22 04:50 Urine Ketones 2+ (Negative) H 02/12/22 04:50 Urine Blood Negative (Negative) 02/12/22 04:50 Urine Nitrite Negative (Negative) 02/12/22 04:50 Urine Bilirubin Negative (Negative) 02/12/22 04:50 Urine Urobilinogen Negative (Negative) 02/12/22 04:50 Ur Leukocyte Esterase Negative (Negative) 02/12/22 04:50 Urine WBC (Auto) 10-30 /hpf (0-5) H 02/12/22 04:50 Urine RBC (Auto) 0-4 /hpf (0-4) 02/12/22 04:50 U Hyaline Cast (Auto) 0 /lpf (0-5) 02/12/22 04:50 U Epithel Cells (Auto) >30 /lpf (0-5) H 02/12/22 04:50 Urine Bacteria (Auto) 1+ (Negative) H 02/12/22 04:50 Urine Test Negative (Negative) 02/12/22 14:41 SARS-CoV-2, RNA, NAAT NEGATIVE (NEGATIVE) 02/12/22 06:[address] 02/12/22 01:31 CT pelvis w/IV con only CLINICAL HISTORY: right buttock infx, ? extent TECHNIQUE: Helical axial images of the pelvis were obtained and displayed at 5 and 1 mm intervals. Automated dose lowering techniques and/or adjustment according to patient size were utilized for this exam. This exam was performed with intravenous contrast. CT DOSE: 278.83 mGy.cm COMPARISON: None available at the time of this dictation. FINDINGS: Bladder: Unremarkable. Reproductive organs: Unremarkable. Bowel: Unremarkable appearance of the bowel. The appendix is normal. Lymph nodes Pelvic: Unremarkable. Mesenteric: Unremarkable. Peritoneum: Normal Vessels: Unremarkable. Abdominal wall: There is skin thickening in the right gluteal region with associated fat stranding without evidence of drainable fluid collection. Bones: Unremarkable. IMPRESSION: Partial visualization of right gluteal skin thickening and fat stranding without evidence of drainable fluid collection. ACT 112: Negative or not required by law. Electronically signed by: Alexis Rodriguez M.D. 02/12/2022 4:02 PM Ordered Studies 02/12/22 01:31 CT pelvis w/IV con only Urgent Hospital Course (1) Cellulitis of buttock, right: Right Buttock Cellulitis/Abscess CT pelvis: Partial visualization of right gluteal skin thickening and fat stranding without evidence of drainable fluid collection. S/P incision and drainage Wound culture growing staph species Continue IV Rocephin, doxycycline Continue wound care Appreciate Surgery help Received IV fluids Transition to p.o. antibiotics to complete the course Advised to follow-up with PCP, surgery upon discharge Abnormal urinalysis Urine culture pending Continue Rocephin as above Hypokalemia Normal magnesium levels Replete electrolytes as needed Mood disorder Ongoing tobacco abuse Continue venlafaxine Counseled to quit smoking DVT Px: Lovenox SQ CODE STATUS Full code Total Time Total Time Spent Total Time Spent (In Minutes): 45 minutes Discharge Plan Discharge Items Patient Disposition: Home - Self-Care Reason For Visit: R GLUTEAL CELLULITIS Discharge Diagnosis: Right buttock abscess/cellulitis Condition on Discharge: Good Activity: Per Instructions section Exercise/Sports: Gradually increase as tolerated Non-emergency contact: Primary Care Provider and Surgeon Call non-emergency contact if: you have any medication questions, your symptoms worsen, your pain is concerning for you and you have a fever Follow-up/Referrals: PCPNO [Primary Care Provider] - Diet: Regular Addtl Attending Provider Instructions: Follow-up with your primary care physician in 1 week. Follow-up with your surgeon Dr. Plaza in 1 week. --- Your urine culture, wound culture pending at the time of discharge. Follow- up with your physician for results. You may need adjustment of antibiotic cours e based on the results. --- Complete antibiotic course: Doxycycline (Start taking from 02/13/22) , cefdinir (Start taking from 02/14/22) as prescribed. Seek immediate medical attention if your symptoms reoccur or worsen Please take all medications as instructed on discharge list below. Please call if you have any questions or problems. You can reach a [facility] hospitalist on duty at [facility] 24 hours a day by calling [phone] Pending Studies at Discharge: Yes Studies:: Wound, urine culture Stand-Alone Forms: My [facility], Smoking Cessation Medications and DC Order Prescriptions: New doxycycline hyclate 100 mg Capsule 100 mg PO BID Qty: 18 0RF cefdinir 300 mg capsule 300 mg PO BID Qty: 16 0RF Rx Instructions: Start taking from 02/14/22 Continued venlafaxine [Effexor XR] 75 mg PO DAILY cetirizine 10 mg PO HS Discharge Orders: Discharge Order (Routine); Ordered 02/13/22 Ordered By: Marcelino Lewis Admission Data Admit Date/Time: 02/13/22 08:46 Attending Provider: Marcelino Lewis Admit Provider: Marcelino Lewis Primary Care Provider: PCP,NO Other Providers: Epifanio Finch ; Shaheen Plaza
== END 2022-02-13 15:05 | disposition home or self-care (01) ==
LOC: ED 23:46 → 3W 23:46